=== PATIENT | male | born 1985 | race African-American/Black ===

== ENCOUNTER 2019-11-24 19:34 | Emergency (ER) | payer OTHER ==
[~2019-11-24] VITALS: Ht 193 cm; Wt 115.7 kg
[2019-11-24 20:22] LABS: URINE BILIRUBIN NEGATIVE (Negative); URINE BLOOD NEGATIVE (Negative); URINE CLARITY CLEAR; URINE COLOR YELLOW; URINE GLUCOSE-RANDOM* NEGATIVE (Negative); URINE KETONES NEGATIVE (Negative); URINE LEUKOCYTES-REFLEX NEGATIVE (Negative); URINE NITRITE-REFLEX NEGATIVE (Negative); URINE PROTEIN (DIPSTICK) TRACE (Negative)
[2019-11-24 20:36] LABS: HEMOGLOBIN 13.4 gm/dL (14.0-18.0); MCH 28.7 pg (26.0-34.0); MCHC 33.6 g/dL (28.0-37.0); MCV 85.4 fL (80.0-100.0); PLATELET COUNT 188 thou/uL (150-400); RBC 4.68 mil/uL (4.50-6.00); RDW 13.2 % (10.5-14.5); WBC 6.7 thou/uL (4.0-11.0)
[2019-11-24 20:44] LABS: CALCIUM 8.9 mg/dL (8.5-10.1); CREATININE 1.2 mg/dL (0.7-1.3)
[2019-11-24 20:50] LABS: TOTAL BILIRUBIN 1.1 mg/dL (0.2-1.0); TOTAL PROTEIN 7.5 g/dL (6.4-8.2)
[2019-11-24 21:26] LABS: ABSOLUTE NEUTROPHILS 3.1 thou/uL (1.4-8.2)
[2019-11-24 21:27] LABS: PLATELET ESTIMATE NORMAL
[2019-11-24 22:56] VITALS: BP 135/77
== END 2019-11-24 22:57 | disposition home or self-care (01) ==
LOC: ER 19:34
PROVIDERS: Physician Assistant
DX: R51 Headache (principal); R11.2 Nausea with vomiting, unspecified; R19.7 Diarrhea, unspecified; R10.32 Left lower quadrant pain; F17.210 Nicotine dependence, cigarettes, uncomplicated; Z03.818 Encounter for observation for suspected exposure to other biological agents ruled out